=== PATIENT | male | born 1945 | race Caucasian/White ===

== ENCOUNTER 2022-11-04 18:28 | Inpatient (IN) | payer MEDICARE, SELFPAY ==
[2022-11-04 19:13] VITALS: BP 170/77; PULSE 50; RESP 17; O2SAT 98
[2022-11-04] MEDS: OLANZapine 2.5 MG TABLET PO (20:53)
[2022-11-04 20:58] VITALS: BP 166/77; PULSE 48; RESP 16
[2022-11-04 21:53] VITALS: BMI 23.5
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
[2022-11-05 06:00] VITALS: BP 158/74; PULSE 63; RESP 18; TEMP 36.9; O2SAT 99
[2022-11-05 08:44] LABS: Alanine Aminotransferase 20 U/L (0-40); Albumin Level 3.9 g/dL (3.5-5.0); Alkaline Phosphatase 61 U/L (39-117); Anion Gap 12 (12-20); Aspartate Amino Transferase 20 U/L (5-37); Bilirubin Total 1.5 mg/dL (0.0-1.0); Blood Urea Nitrogen 14 mg/dL (9-16); Calcium 9.1 mg/dL (8.4-10.2); Carbon Dioxide 29 mmol/L (22-29); Chloride 108 mmol/L (96-108); Cholesterol 186 mg/dL; Creatinine Clr Calc Pharmacy 65.1; Estimated Glomerular Filt Rate > 60; Glucose Fasting 87 mg/dL (60-99); HDL Cholesterol 66 mg/dL; LDL Cholesterol Calculated 100 mg/dl; Potassium 3.9 mmol/L (3.3-5.1); Sodium 145 mmol/L (135-145); Total Protein 5.8 g/dL (6.5-8.0); Triglycerides 103 mg/dL
[2022-11-05] MEDS: Flecainide Acetate 50 MG TABLET 100 MG PO ×2 (08:52→20:37)
[2022-11-05] MEDS: lisinopriL 2.5 MG TABLET PO (08:53)
[2022-11-05] MEDS: Folic Acid 1 MG TABLET PO (08:53)
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
--- NOTE | 2022-11-05 19:18 | PC.NURSE ---
Pt. with good balance and steady gait. Ambulates independently without assistive devices. Bed alarm not indicated.
[2022-11-05] MEDS: traZODone HCL 50 MG TABLET PO (20:38)
[2022-11-05] MEDS: risperiDONE 0.25 MG TABLET PO (20:38)
[2022-11-05 22:57] VITALS: PULSE 58; RESP 16
[2022-11-06 06:00] VITALS: BP 126/58; PULSE 60; RESP 18; TEMP 36.7; O2SAT 99
[2022-11-06] MEDS: Flecainide Acetate 50 MG TABLET 100 MG PO (08:37)
[2022-11-06] MEDS: Folic Acid 1 MG TABLET PO (08:37)
[2022-11-06] MEDS: lisinopriL 2.5 MG TABLET PO (08:38)
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
[2022-11-06 18:00] VITALS: BP 134/73; PULSE 48; RESP 18; TEMP 36.7; O2SAT 100
[2022-11-06] MEDS: risperiDONE 0.25 MG TABLET PO (19:57)
[2022-11-06] MEDS: Rivastigmine Tartrate 1.5 MG CAPSULE PO (19:58)
[2022-11-06] MEDS: traZODone HCL 50 MG TABLET PO (19:58)
[2022-11-07 08:00] VITALS: BP 124/58; PULSE 58; RESP 16; TEMP 36.7; O2SAT 99
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
[2022-11-07] MEDS: Rivastigmine Tartrate 1.5 MG CAPSULE PO ×2 (08:54→20:15)
[2022-11-07] MEDS: lisinopriL 2.5 MG TABLET PO (08:54)
[2022-11-07] MEDS: Flecainide Acetate 50 MG TABLET 100 MG PO ×2 (08:54→20:15)
[2022-11-07] MEDS: Folic Acid 1 MG TABLET PO (08:55)
[2022-11-07 18:00] VITALS: BP 129/60; PULSE 53; RESP 18; TEMP 36.9; O2SAT 97
[2022-11-07] MEDS: risperiDONE 0.25 MG TABLET PO (20:15)
[2022-11-07] MEDS: traZODone HCL 50 MG TABLET PO (21:50)
[2022-11-08 08:00] VITALS: BP 109/66; PULSE 63; RESP 17; TEMP 36.4; O2SAT 99
[2022-11-08] MEDS: Flecainide Acetate 50 MG TABLET 100 MG PO ×2 (08:09→20:20)
[2022-11-08] MEDS: lisinopriL 2.5 MG TABLET PO (08:10)
[2022-11-08] MEDS: Rivastigmine Tartrate 1.5 MG CAPSULE PO ×2 (08:10→20:20)
[2022-11-08] MEDS: Folic Acid 1 MG TABLET PO (08:10)
[2022-11-08 18:00] VITALS: BP 125/69; PULSE 51; RESP 18; TEMP 36.9; O2SAT 98
[2022-11-08] MEDS: risperiDONE 0.25 MG TABLET PO (20:20)
[2022-11-09 07:00] VITALS: BMI 21.3
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
[2022-11-09 10:00] VITALS: BP 131/61; PULSE 71; RESP 17; TEMP 36.4; O2SAT 100
[2022-11-09] MEDS: Rivastigmine Tartrate 1.5 MG CAPSULE PO ×2 (10:35→21:01)
[2022-11-09] MEDS: lisinopriL 2.5 MG TABLET PO (10:35)
[2022-11-09] MEDS: Folic Acid 1 MG TABLET PO (10:35)
[2022-11-09] MEDS: Flecainide Acetate 50 MG TABLET 100 MG PO ×2 (10:35→21:01)
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
[2022-11-09 18:00] VITALS: BP 161/71; PULSE 57; RESP 18; TEMP 36.5; O2SAT 99
[2022-11-09] MEDS: risperiDONE 0.25 MG TABLET PO (21:01)
[2022-11-10 10:15] VITALS: BP 164/77; PULSE 66; RESP 16; TEMP 36.7; O2SAT 98
[2022-11-10] MEDS: lisinopriL 2.5 MG TABLET PO (10:56)
[2022-11-10] MEDS: Folic Acid 1 MG TABLET PO (10:58)
[2022-11-10] MEDS: Rivastigmine Tartrate 1.5 MG CAPSULE PO ×2 (10:58→20:49)
[2022-11-10] MEDS: Flecainide Acetate 50 MG TABLET 100 MG PO ×2 (10:59→20:48)
[2022-11-10 18:00] VITALS: BP 135/71; PULSE 57; RESP 18; TEMP 36.6; O2SAT 97
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
[2022-11-10] MEDS: risperiDONE 0.25 MG TABLET PO (20:49)
[2022-11-11] MEDS: traZODone HCL 50 MG TABLET PO (01:38)
[2022-11-11 06:00] VITALS: BP 138/66; PULSE 63; RESP 18; TEMP 36.6; O2SAT 98
[2022-11-11] MEDS: Flecainide Acetate 50 MG TABLET 100 MG PO ×2 (08:48→20:21)
[2022-11-11] MEDS: lisinopriL 2.5 MG TABLET PO (08:48)
[2022-11-11] MEDS: Rivastigmine Tartrate 1.5 MG CAPSULE PO ×2 (08:48→20:21)
[2022-11-11] MEDS: Folic Acid 1 MG TABLET PO (08:48)
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
[2022-11-11 18:00] VITALS: BP 115/58; PULSE 61; RESP 16; TEMP 36.8; O2SAT 97
[2022-11-11] MEDS: Acetaminophen 325 MG TABLET 650 MG PO (18:27)
[2022-11-11] MEDS: risperiDONE 0.25 MG TABLET PO (20:22)
[2022-11-12 08:47] VITALS: BP 132/58; PULSE 59; RESP 16; TEMP 36.5; O2SAT 99
[2022-11-12] MEDS: Flecainide Acetate 50 MG TABLET 100 MG PO (08:50)
[2022-11-12] MEDS: Folic Acid 1 MG TABLET PO (08:50)
[2022-11-12] MEDS: lisinopriL 2.5 MG TABLET PO (08:50)
[2022-11-12] MEDS: Rivastigmine Tartrate 1.5 MG CAPSULE PO ×2 (08:51→20:57)
[2022-11-12 18:00] VITALS: BP 164/74; PULSE 49; RESP 18; TEMP 36.8; O2SAT 98
--- NOTE | 2022-11-12 18:55 | PC.NURSE ---
Spoke to re: flu vaccine. states pt has not received flu vaccine this season and does not see the need to receive vaccine.
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
[2022-11-12] MEDS: risperiDONE 0.25 MG TABLET PO (20:57)
[2022-11-13 08:55] VITALS: BP 117/60; PULSE 69; RESP 16; TEMP 36.6; O2SAT 99
[2022-11-13] MEDS: Flecainide Acetate 50 MG TABLET 100 MG PO ×2 (09:18→20:54)
[2022-11-13] MEDS: lisinopriL 2.5 MG TABLET PO (09:18)
[2022-11-13] MEDS: Rivastigmine Tartrate 1.5 MG CAPSULE PO ×2 (09:18→20:54)
[2022-11-13] MEDS: Folic Acid 1 MG TABLET PO (09:18)
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
[2022-11-13 18:00] VITALS: BP 137/63; PULSE 59; RESP 16; TEMP 36.7; O2SAT 96
[2022-11-13] MEDS: risperiDONE 0.25 MG TABLET PO (20:54)
[2022-11-14 08:00] VITALS: BP 121/59; PULSE 57; TEMP 36.3; O2SAT 98
[2022-11-14] MEDS: lisinopriL 2.5 MG TABLET PO (08:21)
[2022-11-14] MEDS: Rivastigmine Tartrate 1.5 MG CAPSULE PO ×2 (08:21→20:07)
[2022-11-14] MEDS: Flecainide Acetate 50 MG TABLET 100 MG PO ×2 (08:21→20:07)
[2022-11-14] MEDS: Folic Acid 1 MG TABLET PO (08:22)
[2022-11-14 18:00] VITALS: BP 134/70; PULSE 52; RESP 17; TEMP 36.7; O2SAT 99
[2022-11-14] MEDS: risperiDONE 0.25 MG TABLET PO (20:07)
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
[2022-11-15 06:00] VITALS: BP 142/69; PULSE 61; RESP 18; TEMP 36.4; O2SAT 99
[2022-11-15] MEDS: Rivastigmine Tartrate 1.5 MG CAPSULE PO ×2 (09:42→21:06)
[2022-11-15] MEDS: Flecainide Acetate 50 MG TABLET 100 MG PO ×2 (09:42→21:06)
[2022-11-15] MEDS: lisinopriL 2.5 MG TABLET PO (09:43)
[2022-11-15] MEDS: Folic Acid 1 MG TABLET PO (09:43)
[2022-11-15 18:00] VITALS: BP 169/77; PULSE 60; RESP 17; TEMP 36.7; O2SAT 98
[2022-11-15] MEDS: risperiDONE 0.25 MG TABLET PO (21:06)
[2022-11-16 06:00] VITALS: BP 164/81; PULSE 59; RESP 16; TEMP 36.5; O2SAT 99
[2022-11-16 07:00] VITALS: BMI 20.7
[2022-11-16] MEDS: Flecainide Acetate 50 MG TABLET 100 MG PO ×2 (08:49→20:15)
[2022-11-16] MEDS: lisinopriL 2.5 MG TABLET PO (08:49)
[2022-11-16] MEDS: Rivastigmine Tartrate 1.5 MG CAPSULE PO ×2 (08:49→20:14)
[2022-11-16] MEDS: Folic Acid 1 MG TABLET PO (08:50)
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
[2022-11-16] MEDS: risperiDONE 0.25 MG TABLET PO (20:14)
[2022-11-16 20:35] VITALS: BP 142/65; PULSE 61; RESP 18; TEMP 36.7; O2SAT 97
[2022-11-16] MEDS: traZODone HCL 50 MG TABLET PO (22:36)
[2022-11-17] MEDS: Folic Acid 1 MG TABLET PO (08:34)
[2022-11-17] MEDS: lisinopriL 2.5 MG TABLET PO (08:34)
[2022-11-17] MEDS: Rivastigmine Tartrate 1.5 MG CAPSULE PO ×2 (08:34→20:05)
[2022-11-17] MEDS: Flecainide Acetate 50 MG TABLET 100 MG PO ×2 (08:34→20:05)
[2022-11-17 08:35] VITALS: BP 143/63; PULSE 61; RESP 18; TEMP 35.8; O2SAT 98
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
[2022-11-17 18:00] VITALS: BP 137/65; PULSE 52; RESP 18; TEMP 36.5; O2SAT 98
[2022-11-17] MEDS: traZODone HCL 50 MG TABLET PO (20:05)
[2022-11-17] MEDS: risperiDONE 0.25 MG TABLET PO (20:05)
[2022-11-18 06:00] VITALS: BP 116/57; PULSE 65; RESP 16; TEMP 36.7; O2SAT 98
[2022-11-18] MEDS: Flecainide Acetate 50 MG TABLET 100 MG PO ×2 (09:16→19:45)
[2022-11-18] MEDS: Rivastigmine Tartrate 1.5 MG CAPSULE PO ×2 (09:16→19:46)
[2022-11-18] MEDS: Folic Acid 1 MG TABLET PO (09:17)
[2022-11-18] MEDS: lisinopriL 2.5 MG TABLET PO (09:17)
[2022-11-18 19:25] VITALS: BP 119/56; PULSE 50; RESP 18; TEMP 36.6; O2SAT 97
[2022-11-18] MEDS: traZODone HCL 50 MG TABLET PO (19:46)
[2022-11-18] MEDS: risperiDONE 0.25 MG TABLET PO (19:47)
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
[2022-11-19 07:30] VITALS: BP 118/58; PULSE 51; RESP 16; TEMP 36.6; O2SAT 98
[2022-11-19] MEDS: Folic Acid 1 MG TABLET PO (08:45)
[2022-11-19] MEDS: Flecainide Acetate 50 MG TABLET 100 MG PO ×2 (08:45→20:23)
[2022-11-19] MEDS: Rivastigmine Tartrate 1.5 MG CAPSULE PO ×2 (08:46→20:23)
[2022-11-19] MEDS: lisinopriL 2.5 MG TABLET PO (08:46)
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
[2022-11-19 18:00] VITALS: BP 158/71; PULSE 50; RESP 17; TEMP 37.1; O2SAT 96
[2022-11-19] MEDS: risperiDONE 0.25 MG TABLET PO (20:23)
[2022-11-20 06:00] VITALS: BP 122/59; PULSE 69; RESP 14; TEMP 36.2; O2SAT 99
[2022-11-20] MEDS: lisinopriL 2.5 MG TABLET PO (08:54)
[2022-11-20] MEDS: Folic Acid 1 MG TABLET PO (08:54)
[2022-11-20] MEDS: Rivastigmine Tartrate 1.5 MG CAPSULE PO ×2 (08:54→20:27)
[2022-11-20] MEDS: Flecainide Acetate 50 MG TABLET 100 MG PO ×2 (08:54→20:27)
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
[2022-11-20 15:00] VITALS: BP 119/62; PULSE 50; RESP 18; TEMP 36.6; O2SAT 96
[2022-11-20 18:09] VITALS: BP 127/58; PULSE 50; RESP 18; TEMP 36.6; O2SAT 99
[2022-11-20] MEDS: risperiDONE 0.25 MG TABLET PO (20:27)
[2022-11-21 10:35] VITALS: BP 153/65; PULSE 60; RESP 18; TEMP 35.9; O2SAT 99
[2022-11-21] MEDS: Flecainide Acetate 50 MG TABLET 100 MG PO ×2 (10:40→20:53)
[2022-11-21] MEDS: Folic Acid 1 MG TABLET PO (10:40)
[2022-11-21] MEDS: Rivastigmine Tartrate 1.5 MG CAPSULE PO ×2 (10:40→20:53)
[2022-11-21] MEDS: lisinopriL 2.5 MG TABLET PO (10:40)
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
[2022-11-21 18:00] VITALS: BP 163/74; PULSE 53; RESP 16; TEMP 36.3; O2SAT 97
[2022-11-21] MEDS: traZODone HCL 50 MG TABLET PO (20:53)
[2022-11-21] MEDS: risperiDONE 0.25 MG TABLET PO (20:54)
[2022-11-22 08:05] VITALS: BP 104/53; PULSE 78; RESP 18; TEMP 36.7; O2SAT 100
[2022-11-22] MEDS: Rivastigmine Tartrate 1.5 MG CAPSULE PO ×2 (08:18→20:34)
[2022-11-22] MEDS: Folic Acid 1 MG TABLET PO (08:18)
[2022-11-22] MEDS: Flecainide Acetate 50 MG TABLET 100 MG PO ×2 (08:20→20:34)
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
[2022-11-22 18:00] VITALS: BP 129/65; PULSE 54; RESP 14; TEMP 36.5; O2SAT 98
[2022-11-22] MEDS: risperiDONE 0.25 MG TABLET PO (20:34)
[2022-11-22] MEDS: traZODone HCL 25 MG HALFTAB PO (20:34)
[2022-11-23 07:00] VITALS: BMI 21.6
[2022-11-23 07:30] VITALS: BP 119/65; PULSE 55; RESP 16; TEMP 36.2; O2SAT 96
[2022-11-23] MEDS: Folic Acid 1 MG TABLET PO (08:40)
[2022-11-23] MEDS: lisinopriL 2.5 MG TABLET PO (08:40)
[2022-11-23] MEDS: Flecainide Acetate 50 MG TABLET 100 MG PO ×2 (08:40→20:44)
[2022-11-23] MEDS: Rivastigmine Tartrate 1.5 MG CAPSULE PO ×2 (08:40→20:41)
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
[2022-11-23 20:37] VITALS: BP 113/55; PULSE 51; RESP 16; TEMP 36.7; O2SAT 97
[2022-11-23] MEDS: traZODone HCL 25 MG HALFTAB PO (20:41)
[2022-11-23] MEDS: risperiDONE 0.25 MG TABLET PO (20:42)
[2022-11-24 08:00] VITALS: BP 123/72; PULSE 58; RESP 18; TEMP 36.4; O2SAT 97
[2022-11-24] MEDS: Rivastigmine Tartrate 1.5 MG CAPSULE PO ×2 (08:21→20:43)
[2022-11-24] MEDS: Flecainide Acetate 50 MG TABLET 100 MG PO ×2 (08:21→20:42)
[2022-11-24] MEDS: lisinopriL 2.5 MG TABLET PO (08:21)
[2022-11-24] MEDS: Folic Acid 1 MG TABLET PO (08:21)
[2022-11-24 18:00] VITALS: BP 113/84; PULSE 57; RESP 16; TEMP 36.3; O2SAT 98
[2022-11-24] MEDS: risperiDONE 0.25 MG TABLET PO (20:42)
[2022-11-24] MEDS: traZODone HCL 25 MG HALFTAB PO (20:42)
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
[2022-11-25 06:00] VITALS: BP 133/66; PULSE 61; RESP 16; TEMP 35.9; O2SAT 99
[2022-11-25] MEDS: Rivastigmine Tartrate 1.5 MG CAPSULE PO ×2 (08:34→20:02)
[2022-11-25] MEDS: Flecainide Acetate 50 MG TABLET 100 MG PO ×2 (08:34→20:03)
[2022-11-25] MEDS: lisinopriL 2.5 MG TABLET PO (08:34)
[2022-11-25] MEDS: Folic Acid 1 MG TABLET PO (08:34)
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
[2022-11-25 16:30] VITALS: BP 143/56; PULSE 54; TEMP 36.1
[2022-11-25 19:45] VITALS: BP 111/63; PULSE 51; RESP 18; TEMP 36.4; O2SAT 96
[2022-11-25] MEDS: traZODone HCL 25 MG HALFTAB PO ×2 (20:02)
[2022-11-25] MEDS: risperiDONE 0.25 MG TABLET PO ×2 (20:03→20:04)
[2022-11-26 08:35] VITALS: BP 122/65; PULSE 63; RESP 20; TEMP 36.1; O2SAT 99
[2022-11-26] MEDS: Flecainide Acetate 50 MG TABLET 100 MG PO (08:46)
[2022-11-26] MEDS: Rivastigmine Tartrate 1.5 MG CAPSULE PO ×2 (08:46→20:03)
[2022-11-26] MEDS: lisinopriL 2.5 MG TABLET PO (08:47)
[2022-11-26] MEDS: Folic Acid 1 MG TABLET PO (08:47)
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
[2022-11-26 18:00] VITALS: BP 115/63; PULSE 55; RESP 18; TEMP 36.6; O2SAT 99
[2022-11-26 20:00] VITALS: BP 145/67; PULSE 47
[2022-11-26] MEDS: risperiDONE 0.25 MG TABLET PO (20:03)
[2022-11-26] MEDS: traZODone HCL 25 MG HALFTAB PO (20:04)
[2022-11-27 08:20] VITALS: BP 119/59; PULSE 57; RESP 16; TEMP 36.5; O2SAT 98
[2022-11-27] MEDS: lisinopriL 2.5 MG TABLET PO (08:38)
[2022-11-27] MEDS: Folic Acid 1 MG TABLET PO (08:38)
[2022-11-27] MEDS: Rivastigmine Tartrate 1.5 MG CAPSULE PO ×2 (08:38→21:11)
[2022-11-27] MEDS: Flecainide Acetate 50 MG TABLET 100 MG PO ×2 (08:38→21:11)
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
[2022-11-27 18:00] VITALS: BP 134/65; PULSE 91; RESP 18; TEMP 36.8; O2SAT 96
[2022-11-27] MEDS: risperiDONE 0.25 MG TABLET PO (21:11)
[2022-11-27] MEDS: traZODone HCL 25 MG HALFTAB PO (21:11)
[2022-11-28 08:05] VITALS: BP 126/75; PULSE 59; RESP 18; TEMP 36.4; O2SAT 96
[2022-11-28] MEDS: risperiDONE 0.25 MG TABLET PO ×2 (08:12→21:39)
[2022-11-28] MEDS: Rivastigmine Tartrate 1.5 MG CAPSULE PO ×2 (08:12→21:39)
[2022-11-28] MEDS: lisinopriL 2.5 MG TABLET PO (08:12)
[2022-11-28] MEDS: Flecainide Acetate 50 MG TABLET 100 MG PO ×2 (08:12→21:39)
[2022-11-28] MEDS: Folic Acid 1 MG TABLET PO (08:12)
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
[2022-11-28 18:52] VITALS: BP 138/61; PULSE 51; RESP 18; TEMP 36.4; O2SAT 99
[2022-11-28] MEDS: traZODone HCL 25 MG HALFTAB PO (21:39)
[2022-11-29 08:09] VITALS: BP 134/69; PULSE 51; RESP 16; TEMP 36.7; O2SAT 98
[2022-11-29] MEDS: Rivastigmine Tartrate 1.5 MG CAPSULE PO ×2 (08:36→20:19)
[2022-11-29] MEDS: Flecainide Acetate 50 MG TABLET 100 MG PO ×2 (08:36→20:19)
[2022-11-29] MEDS: Folic Acid 1 MG TABLET PO (08:36)
[2022-11-29] MEDS: lisinopriL 2.5 MG TABLET PO (08:36)
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
[2022-11-29 18:00] VITALS: BP 114/77; PULSE 80; RESP 18; TEMP 36.2; O2SAT 98
[2022-11-29] MEDS: risperiDONE 0.25 MG TABLET PO (20:19)
[2022-11-29] MEDS: traZODone HCL 25 MG HALFTAB PO (20:19)
[2022-11-30 06:00] VITALS: BP 127/68; PULSE 57; RESP 18; TEMP 36.2; O2SAT 98
[2022-11-30] MEDS: Rivastigmine Tartrate 1.5 MG CAPSULE PO (09:26)
[2022-11-30] MEDS: lisinopriL 2.5 MG TABLET PO (09:26)
[2022-11-30] MEDS: Flecainide Acetate 50 MG TABLET 100 MG PO ×2 (09:26→20:11)
[2022-11-30] MEDS: Folic Acid 1 MG TABLET PO (09:27)
[2022-11-30 11:04] VITALS: BMI 21.6
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
[2022-11-30] MEDS: traZODone HCL 25 MG HALFTAB PO ×2 (20:11→20:12)
[2022-11-30] MEDS: risperiDONE 0.25 MG TABLET PO ×2 (20:11)
[2022-11-30] MEDS: Rivastigmine Tartrate 1.5 MG CAPSULE 3 MG PO (20:12)
[2022-11-30 20:25] VITALS: BP 118/58; PULSE 54; RESP 16; TEMP 36.1; O2SAT 99
[2022-12-01 06:00] VITALS: BP 119/66; PULSE 57; RESP 14; TEMP 36.4; O2SAT 95
[2022-12-01] MEDS: Folic Acid 1 MG TABLET PO (09:14)
[2022-12-01] MEDS: lisinopriL 2.5 MG TABLET PO (09:14)
[2022-12-01] MEDS: Rivastigmine Tartrate 1.5 MG CAPSULE 3 MG PO ×2 (09:14→20:34)
[2022-12-01] MEDS: Flecainide Acetate 50 MG TABLET 100 MG PO (09:14)
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
[2022-12-01 18:00] VITALS: BP 125/61; PULSE 50; RESP 18; TEMP 36.6; O2SAT 98
[2022-12-01] MEDS: traZODone HCL 25 MG HALFTAB PO (20:32)
[2022-12-01] MEDS: risperiDONE 0.25 MG TABLET PO (20:34)
[2022-12-02 08:55] VITALS: BP 115/68; PULSE 60; RESP 18; TEMP 36.9; O2SAT 98
[2022-12-02] MEDS: lisinopriL 2.5 MG TABLET PO (09:02)
[2022-12-02] MEDS: Folic Acid 1 MG TABLET PO (09:02)
[2022-12-02] MEDS: Flecainide Acetate 50 MG TABLET 100 MG PO ×2 (09:02→20:12)
[2022-12-02] MEDS: Rivastigmine Tartrate 1.5 MG CAPSULE 3 MG PO ×2 (09:02→20:13)
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
[2022-12-02 18:00] VITALS: BP 161/74; PULSE 66; RESP 16; TEMP 36.8; O2SAT 99
[2022-12-02] MEDS: traZODone HCL 25 MG HALFTAB PO (20:12)
[2022-12-02] MEDS: risperiDONE 0.25 MG TABLET PO (20:13)
[2022-12-03 06:00] VITALS: BP 113/56; PULSE 52; RESP 18; TEMP 36.7; O2SAT 98
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
[2022-12-03] MEDS: Folic Acid 1 MG TABLET PO (10:57)
[2022-12-03] MEDS: Rivastigmine Tartrate 1.5 MG CAPSULE 3 MG PO ×2 (10:57→20:19)
[2022-12-03 18:00] VITALS: BP 129/61; PULSE 57; RESP 17; TEMP 36.3; O2SAT 99
[2022-12-03] MEDS: traZODone HCL 25 MG HALFTAB PO (20:20)
[2022-12-03] MEDS: risperiDONE 0.25 MG TABLET PO (20:20)
[2022-12-04] MEDS: Folic Acid 1 MG TABLET PO (08:26)
[2022-12-04] MEDS: Rivastigmine Tartrate 1.5 MG CAPSULE 3 MG PO (08:26)
[2022-12-04] MEDS: lisinopriL 2.5 MG TABLET PO (08:26)
[2022-12-04] MEDS: Flecainide Acetate 50 MG TABLET 100 MG PO (08:27)
[2022-12-04 09:00] VITALS: BP 134/66; PULSE 56; RESP 18; TEMP 36.1; O2SAT 98
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
[2022-12-04] MEDS: traZODone HCL 25 MG HALFTAB PO (20:40)
[2022-12-04] MEDS: risperiDONE 0.25 MG TABLET PO (20:40)
[2022-12-04 20:50] VITALS: BP 160/76; PULSE 47; RESP 18; TEMP 36.4; O2SAT 98
[2022-12-05 06:00] VITALS: BP 124/65; PULSE 87; RESP 18; TEMP 36.3; O2SAT 99
[2022-12-05] MEDS: Folic Acid 1 MG TABLET PO (10:54)
[2022-12-05] MEDS: Rivastigmine Tartrate 1.5 MG CAPSULE 3 MG PO ×2 (10:54→20:07)
[2022-12-05] MEDS: lisinopriL 2.5 MG TABLET PO (10:54)
[2022-12-05] MEDS: Flecainide Acetate 50 MG TABLET 100 MG PO ×2 (10:54→20:07)
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
[2022-12-05 18:00] VITALS: BP 163/72; PULSE 56
[2022-12-05] MEDS: traZODone HCL 25 MG HALFTAB PO (20:07)
[2022-12-05] MEDS: risperiDONE 0.25 MG TABLET PO (20:07)
[2022-12-06 08:05] VITALS: BP 132/60; PULSE 57; RESP 20; TEMP 36.8; O2SAT 98
[2022-12-06] MEDS: lisinopriL 2.5 MG TABLET PO (08:23)
[2022-12-06] MEDS: Rivastigmine Tartrate 1.5 MG CAPSULE 3 MG PO ×2 (08:23→21:32)
[2022-12-06] MEDS: Flecainide Acetate 50 MG TABLET 100 MG PO ×2 (08:23→21:32)
[2022-12-06] MEDS: Folic Acid 1 MG TABLET PO (08:25)
[2022-12-06 21:31] VITALS: BP 170/73; PULSE 53; TEMP 36.4; O2SAT 100
[2022-12-06] MEDS: risperiDONE 0.25 MG TABLET PO (21:32)
[2022-12-06] MEDS: traZODone HCL 25 MG HALFTAB PO (21:32)
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
[2022-12-07 08:34] VITALS: BP 111/56; PULSE 56; RESP 18; TEMP 36.6; O2SAT 98
[2022-12-07] MEDS: Folic Acid 1 MG TABLET PO (08:36)
[2022-12-07] MEDS: Rivastigmine Tartrate 1.5 MG CAPSULE 3 MG PO ×2 (08:36→20:25)
[2022-12-07] MEDS: Flecainide Acetate 50 MG TABLET 100 MG PO ×2 (08:36→20:24)
[2022-12-07] MEDS: lisinopriL 2.5 MG TABLET PO (08:36)
[2022-12-07 09:02] LABS: Alanine Aminotransferase 13 U/L (0-40); Alkaline Phosphatase 57 U/L (39-117); Anion Gap 12 (12-20); Aspartate Amino Transferase 14 U/L (5-37); Bilirubin Total 0.9 mg/dL (0.0-1.0); Blood Urea Nitrogen 14 mg/dL (9-16); Carbon Dioxide 29 mmol/L (22-29); Chloride 106 mmol/L (96-108); Creatinine Clr Calc Pharmacy 56.4; Estimated Glomerular Filt Rate > 60; Glucose Random 115 mg/dL (60-115); Potassium 4.3 mmol/L (3.3-5.1); Sodium 143 mmol/L (135-145); Total Protein 5.8 g/dL (6.5-8.0)
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
[2022-12-07 18:00] VITALS: BP 149/66; PULSE 54; RESP 18; TEMP 36.6; O2SAT 98
[2022-12-07] MEDS: risperiDONE 0.25 MG TABLET 0.5 MG PO (20:24)
[2022-12-07] MEDS: traZODone HCL 25 MG HALFTAB PO ×2 (20:24)
[2022-12-08 08:00] VITALS: BP 118/57; PULSE 50; RESP 18; TEMP 36.8; O2SAT 97
[2022-12-08] MEDS: Folic Acid 1 MG TABLET PO (09:58)
[2022-12-08] MEDS: Rivastigmine Tartrate 1.5 MG CAPSULE 3 MG PO ×2 (09:58→21:24)
[2022-12-08] MEDS: lisinopriL 2.5 MG TABLET PO (09:58)
[2022-12-08] MEDS: Flecainide Acetate 50 MG TABLET 100 MG PO ×2 (09:58→21:24)
[2022-12-08 17:50] VITALS: BMI 22.4
[2022-12-08 18:00] VITALS: BP 125/60; PULSE 63; RESP 16; TEMP 36.6; O2SAT 98
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
[2022-12-08] MEDS: traZODone HCL 25 MG HALFTAB PO (21:24)
[2022-12-08] MEDS: risperiDONE 0.25 MG TABLET 0.5 MG PO (21:24)
[2022-12-09 07:55] VITALS: BP 118/59; PULSE 57; RESP 16; TEMP 36.6; O2SAT 99
[2022-12-09] MEDS: Folic Acid 1 MG TABLET PO (08:36)
[2022-12-09] MEDS: lisinopriL 2.5 MG TABLET PO (08:36)
[2022-12-09] MEDS: Flecainide Acetate 50 MG TABLET 100 MG PO ×2 (08:37→20:12)
[2022-12-09] MEDS: Rivastigmine Tartrate 1.5 MG CAPSULE 3 MG PO ×2 (08:37→20:12)
[2022-12-09 19:30] VITALS: BP 128/59; PULSE 53; RESP 18; TEMP 36.6; O2SAT 98
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
[2022-12-09] MEDS: risperiDONE 0.25 MG TABLET 0.5 MG PO (20:13)
[2022-12-09] MEDS: traZODone HCL 25 MG HALFTAB PO (20:13)
[2022-12-10 06:00] VITALS: BP 102/60; PULSE 64; RESP 15; TEMP 36.7; O2SAT 95
[2022-12-10] MEDS: lisinopriL 2.5 MG TABLET PO (08:10)
[2022-12-10] MEDS: Flecainide Acetate 50 MG TABLET 100 MG PO ×2 (08:10→20:51)
[2022-12-10] MEDS: Rivastigmine Tartrate 1.5 MG CAPSULE 3 MG PO ×2 (08:10→20:29)
[2022-12-10] MEDS: Folic Acid 1 MG TABLET PO (08:10)
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
[2022-12-10 18:00] VITALS: BP 134/62; PULSE 82; RESP 18; TEMP 36.1; O2SAT 98
[2022-12-10 20:25] VITALS: BP 128/62; PULSE 74
[2022-12-10] MEDS: traZODone HCL 25 MG HALFTAB PO (20:29)
[2022-12-10] MEDS: risperiDONE 0.25 MG TABLET 0.5 MG PO (20:30)
[2022-12-11 06:00] VITALS: BP 127/67; PULSE 61; RESP 12; TEMP 35.9; O2SAT 98
[2022-12-11] MEDS: Rivastigmine Tartrate 1.5 MG CAPSULE 3 MG PO ×2 (08:07→20:08)
[2022-12-11] MEDS: lisinopriL 2.5 MG TABLET PO (08:07)
[2022-12-11] MEDS: Flecainide Acetate 50 MG TABLET 100 MG PO ×2 (08:08→20:09)
[2022-12-11] MEDS: Folic Acid 1 MG TABLET PO (08:08)
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
[2022-12-11 19:00] VITALS: BP 172/70; PULSE 55; RESP 18; TEMP 36.5; O2SAT 99
[2022-12-11] MEDS: traZODone HCL 25 MG HALFTAB PO (20:09)
[2022-12-11] MEDS: risperiDONE 0.25 MG TABLET 0.5 MG PO (20:09)
[2022-12-12 08:00] VITALS: BP 144/65; PULSE 52; RESP 16; TEMP 36.2; O2SAT 96
[2022-12-12] MEDS: Folic Acid 1 MG TABLET PO (09:13)
[2022-12-12] MEDS: Rivastigmine Tartrate 1.5 MG CAPSULE 3 MG PO ×2 (09:13→21:15)
[2022-12-12] MEDS: Flecainide Acetate 50 MG TABLET 100 MG PO (09:13)
[2022-12-12] MEDS: lisinopriL 2.5 MG TABLET PO (09:14)
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
[2022-12-12 18:00] VITALS: BP 149/70; PULSE 48; RESP 16; TEMP 36.6; O2SAT 98
[2022-12-12] MEDS: risperiDONE 0.25 MG TABLET 0.5 MG PO (21:15)
[2022-12-13] MEDS: traZODone HCL 25 MG HALFTAB PO ×2 (01:10→20:29)
[2022-12-13 08:15] VITALS: BP 121/65; PULSE 58; RESP 18; TEMP 36.8; O2SAT 98
[2022-12-13] MEDS: lisinopriL 2.5 MG TABLET PO (09:31)
[2022-12-13] MEDS: Flecainide Acetate 50 MG TABLET 100 MG PO ×2 (09:31→20:30)
[2022-12-13] MEDS: Folic Acid 1 MG TABLET PO (09:31)
[2022-12-13] MEDS: Rivastigmine Tartrate 1.5 MG CAPSULE 3 MG PO ×2 (09:31→20:27)
[2022-12-13 18:00] VITALS: BP 133/61; PULSE 58; RESP 16; TEMP 36.2; O2SAT 98
[2022-12-13] MEDS: risperiDONE 0.25 MG TABLET 0.5 MG PO (20:26)
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
[2022-12-14 07:00] VITALS: BMI 22.3
[2022-12-14 07:30] VITALS: BP 129/66; PULSE 58; RESP 12; TEMP 36.4; O2SAT 98
[2022-12-14] MEDS: lisinopriL 2.5 MG TABLET PO (08:22)
[2022-12-14] MEDS: Rivastigmine Tartrate 1.5 MG CAPSULE 3 MG PO ×2 (08:23→19:47)
[2022-12-14] MEDS: Flecainide Acetate 50 MG TABLET 100 MG PO ×2 (08:23→19:45)
[2022-12-14] MEDS: Folic Acid 1 MG TABLET PO (08:23)
[2022-12-14] MEDS: risperiDONE 0.25 MG TABLET 0.5 MG PO (19:46)
[2022-12-14] MEDS: traZODone HCL 25 MG HALFTAB PO (19:47)
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
[2022-12-15 08:10] VITALS: BP 129/62; PULSE 56; RESP 16; TEMP 36.7; O2SAT 99
[2022-12-15] MEDS: Rivastigmine Tartrate 1.5 MG CAPSULE 3 MG PO ×2 (08:28→20:03)
[2022-12-15] MEDS: lisinopriL 2.5 MG TABLET PO (08:29)
[2022-12-15] MEDS: Flecainide Acetate 50 MG TABLET 100 MG PO ×2 (08:29→20:03)
[2022-12-15] MEDS: Folic Acid 1 MG TABLET PO (08:29)
[2022-12-15] MEDS: traZODone HCL 25 MG HALFTAB PO (20:02)
[2022-12-15] MEDS: risperiDONE 0.25 MG TABLET 0.5 MG PO (20:02)
[2022-12-15 20:35] VITALS: BP 142/66; PULSE 64; RESP 18; TEMP 36.4; O2SAT 98
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
[2022-12-16 07:45] VITALS: BP 111/69; PULSE 55; RESP 16; TEMP 36.7; O2SAT 98
[2022-12-16] MEDS: Flecainide Acetate 50 MG TABLET 100 MG PO ×2 (08:23→19:59)
[2022-12-16] MEDS: Rivastigmine Tartrate 1.5 MG CAPSULE 3 MG PO ×2 (08:24→20:00)
[2022-12-16] MEDS: lisinopriL 2.5 MG TABLET PO (08:24)
[2022-12-16] MEDS: Folic Acid 1 MG TABLET PO (08:24)
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
[2022-12-16 18:00] VITALS: BP 157/75; PULSE 50; RESP 18; TEMP 36.1; O2SAT 97
[2022-12-16] MEDS: traZODone HCL 25 MG HALFTAB PO (19:59)
[2022-12-16] MEDS: risperiDONE 0.25 MG TABLET 0.5 MG PO (20:00)
[2022-12-17 06:00] VITALS: BP 146/75; PULSE 55; RESP 18; TEMP 36.6; O2SAT 98
[2022-12-17] MEDS: Flecainide Acetate 50 MG TABLET 100 MG PO (08:10)
[2022-12-17] MEDS: lisinopriL 2.5 MG TABLET PO (08:10)
[2022-12-17] MEDS: Rivastigmine Tartrate 1.5 MG CAPSULE 3 MG PO ×2 (08:10→20:19)
[2022-12-17] MEDS: Folic Acid 1 MG TABLET PO (08:11)
[2022-12-17 18:00] VITALS: BP 151/72; PULSE 50; RESP 16; TEMP 36.3; O2SAT 98
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
[2022-12-17] MEDS: risperiDONE 0.25 MG TABLET 0.5 MG PO (20:18)
[2022-12-17] MEDS: traZODone HCL 25 MG HALFTAB PO (20:20)
[2022-12-17 20:24] VITALS: PULSE 42; RESP 16; O2SAT 98
[2022-12-18 06:00] VITALS: BP 141/74; PULSE 61; RESP 18; TEMP 36.3; O2SAT 98
[2022-12-18] MEDS: Flecainide Acetate 50 MG TABLET 100 MG PO ×2 (09:23→20:01)
[2022-12-18] MEDS: Folic Acid 1 MG TABLET PO (09:24)
[2022-12-18] MEDS: lisinopriL 2.5 MG TABLET PO (09:24)
[2022-12-18] MEDS: Rivastigmine Tartrate 1.5 MG CAPSULE 3 MG PO ×2 (09:24→20:00)
[2022-12-18 18:00] VITALS: BP 134/68; PULSE 56; RESP 18; TEMP 36.6; O2SAT 98
[2022-12-18] MEDS: traZODone HCL 25 MG HALFTAB PO (20:01)
[2022-12-18] MEDS: risperiDONE 0.25 MG TABLET 0.5 MG PO (20:02)
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
[2022-12-19] MEDS: lisinopriL 2.5 MG TABLET PO (08:44)
[2022-12-19 08:45] VITALS: BP 141/63; PULSE 62; RESP 18; TEMP 36.3; O2SAT 100
[2022-12-19] MEDS: Rivastigmine Tartrate 1.5 MG CAPSULE 3 MG PO ×2 (08:45→21:04)
[2022-12-19] MEDS: Folic Acid 1 MG TABLET PO (08:45)
[2022-12-19] MEDS: Flecainide Acetate 50 MG TABLET 100 MG PO ×2 (08:46→21:04)
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
[2022-12-19 18:00] VITALS: BP 112/56; PULSE 50; RESP 18; TEMP 36.6; O2SAT 97
[2022-12-19] MEDS: traZODone HCL 25 MG HALFTAB PO (21:04)
[2022-12-19] MEDS: risperiDONE 0.25 MG TABLET 0.5 MG PO (21:04)
[2022-12-20 06:00] VITALS: BP 111/75; PULSE 90; RESP 18; O2SAT 98
[2022-12-20] MEDS: lisinopriL 2.5 MG TABLET PO (08:46)
[2022-12-20] MEDS: Folic Acid 1 MG TABLET PO (08:46)
[2022-12-20] MEDS: Flecainide Acetate 50 MG TABLET 100 MG PO ×2 (08:46→21:16)
[2022-12-20] MEDS: Rivastigmine Tartrate 1.5 MG CAPSULE 3 MG PO ×2 (08:46→21:16)
[2022-12-20 18:00] VITALS: BP 124/78; PULSE 82; RESP 18; TEMP 36.4; O2SAT 98
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
[2022-12-20] MEDS: risperiDONE 0.25 MG TABLET 0.5 MG PO (21:16)
[2022-12-20] MEDS: traZODone HCL 25 MG HALFTAB PO (21:16)
[2022-12-21 08:00] VITALS: BP 92/64; PULSE 86; RESP 18; TEMP 36.7; O2SAT 95
[2022-12-21 09:28] VITALS: BP 96/54
[2022-12-21] MEDS: Rivastigmine Tartrate 1.5 MG CAPSULE 3 MG PO ×2 (09:30→20:45)
[2022-12-21] MEDS: Folic Acid 1 MG TABLET PO (09:31)
[2022-12-21] MEDS: Flecainide Acetate 50 MG TABLET 100 MG PO (09:32)
[2022-12-21 20:30] VITALS: BP 152/71; PULSE 48; RESP 16; TEMP 36.3; O2SAT 99
[2022-12-21] MEDS: risperiDONE 0.25 MG TABLET 0.5 MG PO (20:45)
[2022-12-21] MEDS: traZODone HCL 25 MG HALFTAB PO (20:45)
--- NOTE | 2022-12-21 20:47 | PC.NURSE ---
Pt had radial pulse of [address] Dorothy germain.
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
[2022-12-22 08:09] VITALS: BP 117/58; PULSE 51; RESP 16; TEMP 36.7; O2SAT 98
[2022-12-22] MEDS: Rivastigmine Tartrate 1.5 MG CAPSULE 3 MG PO ×2 (08:44→20:30)
[2022-12-22] MEDS: Folic Acid 1 MG TABLET PO (08:44)
[2022-12-22] MEDS: Flecainide Acetate 50 MG TABLET 100 MG PO ×2 (08:44→20:31)
[2022-12-22 11:13] VITALS: BP 125/58; BP 134/62; PULSE 51; PULSE 55
[2022-12-22 11:14] VITALS: BP 129/61; PULSE 59
[2022-12-22 18:00] VITALS: BP 137/62; PULSE 46; RESP 16; TEMP 36.4; O2SAT 99
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
[2022-12-22] MEDS: risperiDONE 0.25 MG TABLET 0.5 MG PO (20:34)
[2022-12-22] MEDS: traZODone HCL 25 MG HALFTAB PO (22:18)
[2022-12-23 06:00] VITALS: BP 132/60; PULSE 49
[2022-12-23] MEDS: Folic Acid 1 MG TABLET PO (09:13)
[2022-12-23] MEDS: lisinopriL 2.5 MG TABLET PO (09:13)
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
[2022-12-23 16:51] VITALS: BP 124/66; PULSE 52
[2022-12-23] MEDS: traZODone HCL 25 MG HALFTAB PO (21:41)
[2022-12-23] MEDS: risperiDONE 0.25 MG TABLET 0.5 MG PO (21:41)
[2022-12-24 08:52] VITALS: BP 108/63; PULSE 66; RESP 18; TEMP 37.2; O2SAT 98
[2022-12-24] MEDS: Rivastigmine Tartrate 1.5 MG CAPSULE PO ×2 (09:05→20:46)
[2022-12-24] MEDS: lisinopriL 2.5 MG TABLET PO (09:05)
[2022-12-24] MEDS: Folic Acid 1 MG TABLET PO (09:05)
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
[2022-12-24 18:00] VITALS: BP 104/57; PULSE 60; RESP 18; TEMP 36.6; O2SAT 98
[2022-12-24] MEDS: risperiDONE 0.25 MG TABLET 0.5 MG PO (20:45)
[2022-12-24] MEDS: traZODone HCL 25 MG HALFTAB PO (20:46)
[2022-12-25 08:44] VITALS: BP 108/55; PULSE 59; RESP 18; TEMP 36.4; O2SAT 99
[2022-12-25] MEDS: lisinopriL 2.5 MG TABLET PO (08:48)
[2022-12-25] MEDS: Folic Acid 1 MG TABLET PO (08:48)
[2022-12-25] MEDS: Rivastigmine Tartrate 1.5 MG CAPSULE PO (08:48)
[2022-12-25] MEDS: Flecainide Acetate 50 MG TABLET 100 MG PO (08:48)
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
== END 2022-12-25 10:48 | disposition home or self-care (01) | DRG 57 ==
PROVIDERS: Psychiatry & Neurology Psychiatry; Social Worker; Admitting Provider Psychiatry & Neurology Psychiatry; Visit Provider Psychiatry & Neurology Psychiatry
DX: G30.9 Alzheimer's disease, unspecified (principal); F02.C18 Dementia in other diseases classified elsewhere, severe, with other behavioral disturbance; I10 Essential (primary) hypertension; I48.91 Unspecified atrial fibrillation; G47.33 Obstructive sleep apnea (adult) (pediatric); Z91.041 Radiographic dye allergy status; Z88.2 Allergy status to sulfonamides; Z79.899 Other long term (current) drug therapy
CPT/HCPCS: 36415; 80053; 80061